=== PATIENT | male | born 1955 | race Caucasian/White ===

== ENCOUNTER 2018-07-31 22:06 | Inpatient (IN) | payer BC ==
[2018-07-31] MEDS ORDERED: VANCOMYCIN HCL INJ 1000 MG VIAL IV ONE (23:25)
[2018-07-31] MEDS ORDERED: AZTREONAM INJ 1 GM VIAL IV ONE (23:33)
--- NOTE | 2018-07-31 23:38 | ER Document Report ---
ED General - General Chief Complaint: Abscess Stated Complaint: POSSIBLE INSECT BITE Time Seen by Provider: 07/31/18 23:17 Mode of Arrival: Ambulatory Information source: Patient Notes: 63-year-old male with no reported past medical history presents with complaint of right elbow pain and left upper arm pain. She states on July 10, 2018 he got into his truck and noticed a brown spider crawl across his lap. He did not feel any pain or stinging at that time. He states 7 days later he started to develop redness and pain of the right elbow and 2 days after that developed pain, swelling and erythema of the left upper extremity. Patient denies any travel outside of [place]. He denies any fever, chills, nausea, vomiting history of MRSA. He states his is currently in the hospital which is the reason he delayed seeking care. TRAVEL OUTSIDE OF THE [place] IN LAST 30 DAYS: No - HPI Onset: Other Onset/Duration: Gradual, Persistent, Worse Quality of pain: Achy, Burning Severity: Mild Associated symptoms: denies: Chest pain, Diarrhea, Fever, Nausea, Vomiting, Shortness of breath Exacerbated by: Movement Relieved by: Denies Similar symptoms previously: No Recently seen / treated by doctor: No - Related Data Allergies/Adverse Reactions: Penicillins Allergy (Verified 07/31/18 22:11) Past Medical History - General Information source: Patient - Social History Smoking Status: Never Smoker Chew tobacco use (# tins/day): No Frequency of alcohol use: None Drug Abuse: None Lives with: Spouse/Significant other Family History: Reviewed & Not Pertinent Patient has suicidal ideation: No Patient has homicidal ideation: No - Medical History Medical History: Negative Renal/ Medical History: Denies: Hx Peritoneal Dialysis Review of Systems - Review of Systems Notes: REVIEW OF SYSTEMS: CONSTITUTIONAL : Denies fever, chills, or sweats. Denies recent illness. Denies weight loss, recent hospitalizations. EENT: Denies visual changes, eye pain. Denies sore throat, oral lesions, difficulty swallowing. CARDIOVASCULAR: Denies chest pain. Denies palpitations. Denies lower extremity edema. RESPIRATORY: Denies cough. Denies shortness of breath, wheezing. GASTROINTESTINAL: Denies abdominal pain or distention. Denies nausea, vomiting , or diarrhea. Denies blood in vomitus, stools, or per rectum. Denies black, tarry stools. Denies constipation. GENITOURINARY: Denies difficulty urinating, painful urination, frequency, blood in urine, testicular pain or penile discharge. MUSCULOSKELETAL: Denies back or neck pain or stiffness. Denies joint pain or swelling. SKIN:+ Erythema, ulceration HEMATOLOGIC : Denies easy bruising or bleeding. LYMPHATIC: Denies swollen glands. NEUROLOGICAL: Denies confusion or altered mental status. Denies loss of consciousness. Denies dizziness or lightheadedness. Denies headache. Denies weakness or paralysis. Denies problems difficulty with ambulation, slurred speech. Denies sensory loss, numbness, or tingling. Denies seizures. PSYCHIATRIC: Denies anxiety or stress. Denies depression, suicidal ideation, or Physical Exam - Vital signs Vitals: Temp Pulse Resp BP Pulse Ox 100.7 F H 91 19 167/69 H 98 07/31/18 22:16 07/31/18 22:16 07/31/18 22:16 07/31/18 22:16 07/31/18 22:16 Interpretation: Hypertensive, Febrile - Notes Notes: PHYSICAL EXAMINATION: GENERAL: Well-appearing, well-nourished and in no acute distress. HEAD: Atraumatic, normocephalic. EYES: Pupils equal round and reactive to light, extraocular movements intact, sclera anicteric, conjunctiva are normal. ENT: Nares patent, oropharynx clear without exudates. Moist mucous membranes. NECK: Normal range of motion, supple without lymphadenopathy LUNGS: Breath sounds clear to auscultation bilaterally and equal. No wheezes rales or rhonchi. HEART: Regular rate and rhythm without murmurs ABDOMEN: Soft, nontender, nondistended abdomen. No guarding, no rebound. No masses appreciated. Musculoskeletal: Right elbow-erythematous, warm, small pustular lesion noted. Left upper extremity-erythematous bicep with a 3 x 3 cm necrotic area. NEUROLOGICAL: Cranial nerves grossly intact. Normal speech, normal gait. Normal sensory, motor exams PSYCH: Normal mood, normal affect. SKIN: Warm, Dry, normal turgor, no rashes or lesions noted. Course - Re-evaluation Re-evalutation: Laboratory 07/31/18 07/31/18 08/01/18 23:35 23:35 01:17 WBC 10.2 RBC 4.78 Hgb 14.2 Hct 40.9 MCV 86 MCH 29.8 MCHC 34.8 RDW 13.2 Plt Count 321 Seg Neutrophils % 73.0 Lymphocytes % 13.5 Monocytes % 11.5 Eosinophils % 1.3 Basophils % 0.7 Absolute Neutrophils 7.4 Absolute Lymphocytes 1.4 Absolute Monocytes 1.2 Absolute Eosinophils 0.1 Absolute Basophils 0.1 PT 13.5 INR 0.98 APTT 35.7 Sodium 138.0 Potassium 3.9 Chloride 98 Carbon Dioxide 29 Anion Gap 11 BUN 13 Creatinine 0.70 Est GFR ( Amer) > 60 Est GFR (Non-Af Amer) > 60 Glucose 114 H Calcium 9.0 Total Bilirubin 0.7 Direct Bilirubin 0.1 Neonat Total Bilirubin Not Reportable Neonat Direct Bilirubin Not Reportable Neonat Indirect Bili Not Reportable AST 18 ALT 21 Alkaline Phosphatase 83 Total Protein 7.3 Albumin [address] 08/01/18 00:00 IMPRESSION: 1. 2.5 cm fluid collection at the level of the right elbow joint which may represent developing abscess or phlegmon. 2. Subcutaneous thickening with 2 cm nodule overlying the left biceps musculature, without a definite fluid collection. 63-year-old male with no reported past medical history presents with complaint of right elbow pain and left upper arm pain. She states on July 10, 2018 he got into his truck and noticed a brown spider crawl across his lap. He did not feel any pain or stinging at that time. He states 7 days later he started to develop redness and pain of the right elbow and 2 days after that developed pain, swelling and erythema of the left upper extremity. Patient denies any travel outside of [place]. He denies any fever, chills, nausea, vomiting history of MRSA. Vital signs reviewed upon arrival, patient is febrile , hypertensive. He does not appear toxic or dehydrated. He is in no acute distress. Exam is significant for a large area of erythema of the left bicep with a necrotic center as well as an erythematous right elbow with small pustular lesions. Patient was started on vancomycin and Unasyn per surgery recommendation. Surgery has evaluated the patient and determined that he will need surgical debridement. Dr. Ocampo has agreed to admit to his service. Medicine consult ordered and pending. 08/01/18 00:46 Dr. Salomon consult for possible need for debridement. 08/01/18 02:12 08/01/18 02:12 - Vital Signs Vital signs: Temp Pulse Resp BP Pulse Ox 100.7 F H 91 19 167/69 H 98 07/31/18 22:16 07/31/18 22:16 07/31/18 22:16 07/31/18 22:16 07/31/18 22:16 - Laboratory Result Diagrams: 07/31/18 23:35 07/31/18 23:35 Laboratory results interpreted by me: 07/31/18 23:35 Glucose 114 H - Diagnostic Test Radiology reviewed: Image reviewed, Reports reviewed Discharge - Discharge Clinical Impression: Cellulitis of left upper extremity Cellulitis Qualifiers: Site of cellulitis: extremity Site of cellulitis of extremity: upper extremity Laterality: right Qualified Code(s): L03.113 - Cellulitis of right upper limb Hypertension Qualifiers: Hypertension type: unspecified Qualified Code(s): I10 - Essential (primary) hypertension Fever Qualifiers: Fever type: unspecified Qualified Code(s): R50.9 - Fever, unspecified Condition: Good Disposition: ADMITTED INPATIENT Admitting Provider: Surgicalist Unit Admitted: Surgical Floor
[2018-07-31 23:48] LABS: ABSOLUTE BASOPHILS # (AUTO) 0.1 10^3/uL (0.0-0.2); ABSOLUTE EOSINOPHILS # (AUTO) 0.1 10^3/uL (0.0-0.6); ABSOLUTE LYMPHOCYTES (AUTO) 1.4 10^3/uL (0.5-4.7); ABSOLUTE MONOCYTES (AUTO) 1.2 10^3/uL (0.1-1.4); ABSOLUTE NEUT (AUTO) 7.4 10^3/uL (1.7-8.2); BASOPHILS % (AUTO) 0.7 % (0-2); EOSINOPHILS % (AUTO) 1.3 % (0-6); HEMATOCRIT 40.9 % (37.9-51.0); HEMOGLOBIN 14.2 g/dL (13.5-17.0); LYMPHOCYTES % (AUTO) 13.5 % (13-45); MEAN CORPUSCULAR HEMOGLOBIN 29.8 pg (27.0-33.4); MEAN CORPUSCULAR HGB CONC 34.8 g/dL (32.0-36.0); MEAN CORPUSCULAR VOLUME 86 fl (80-97); MONOCYTES % (AUTO) 11.5 % (3-13); PLATELET COUNT 321 10^3/uL (150-450); RED BLOOD COUNT 4.78 10^6/uL (4.35-5.55); RED CELL DISTRIBUTION WIDTH 13.2 % (11.5-14.0); TOTAL CELLS COUNTED % (AUTO) 100 %; WHITE BLOOD COUNT 10.2 10^3/uL (4.0-10.5)
[2018-08-01 00:02] LABS: ALANINE AMINOTRANSFERASE 21 U/L (21-72); ALKALINE PHOSPHATASE 83 U/L (38-126); ANION GAP 11 (5-19); ASPARTATE AMINO TRANSFERASE 18 U/L (17-59); BILIRUBIN,DIRECT 0.1 mg/dL (0.0-0.4); BILIRUBIN,TOTAL 0.7 mg/dL (0.2-1.3); BLOOD UREA NITROGEN 13 mg/dL (7-20); CARBON DIOXIDE 29 mmol/L (22-30); CHLORIDE 98 mmol/L (98-107); GLUCOSE 114 mg/dL (75-110); POTASSIUM 3.9 mmol/L (3.6-5.0); TOTAL PROTEIN 7.3 g/dL (6.3-8.2)
[2018-08-01] MEDS ORDERED: CLINDAMYCIN 900 MG/D5W RTU 900 MG/50 ML RTUPB IV ONE (01:10)
--- NOTE | 2018-08-01 01:26 | RADIOLOGY REPORT (SQ) ---
CT LEFT UPPER EXTREMITY WITH IV CONTRAST CT RIGHT UPPER EXTREMITY WITH IV CONTRAST HISTORY: Spider bite. COMPARISON: None. TECHNIQUE: CT scan of the bilateral upper extremities. This exam was performed according to our departmental dose-optimization program, which includes automated exposure control, adjustment of the mA and/or kV according to patient size and/or use of iterative reconstruction technique. FINDINGS: LEFT: Focal skin thickening with 2.0 x 1.6 cm soft tissue nodule at the level of the mid humeral shaft. No focal fluid collection is identified. Surrounding subcutaneous inflammatory stranding is seen. No evidence of osteomyelitis. No acute fracture or dislocation. Joint spaces are grossly preserved. RIGHT: Additional focal soft tissue thickening at the level of the elbow joint with an approximately 2.5 x 2.2 cm fluid collection in the subcutaneous tissues. Mild subcutaneous stranding of the upper extremity. No evidence of osteomyelitis. No acute fracture or dislocation. Joint spaces are grossly preserved. IMPRESSION: 1. 2.5 cm fluid collection at the level of the right elbow joint which may represent developing abscess or phlegmon. 2. Subcutaneous thickening with 2 cm nodule overlying the left biceps musculature, without a definite fluid collection.
[2018-08-01 01:35] LABS: INTERNATIONAL RATION (INR) 0.98; PROTHROMBIN TIME 13.5 SEC (11.4-15.4)
[2018-08-01 01:36] LABS: PARTIAL THROMBOPLASTIN TIME 35.7 SEC (23.5-35.8)
[2018-08-01] MEDS ORDERED: DEXTROSE 50%-WATER 25 GM/50 ML DISP.SYRIN IV PRN ×2 (03:01)
[2018-08-01] MEDS ORDERED: GLUCAGON,HUMAN RECOMB 1 MG INJ SUBCUT PRN (03:01)
[2018-08-01] MEDS ORDERED: DEXTROSE 40% GEL 15 GM TUBE PO PRN ×2 (03:01)
[2018-08-01 04:09] LABS: ABSOLUTE EOSINOPHILS # (AUTO) 0.1 10^3/uL (0.0-0.6); ABSOLUTE LYMPHOCYTES (AUTO) 0.9 10^3/uL (0.5-4.7); ABSOLUTE MONOCYTES (AUTO) 1.3 10^3/uL (0.1-1.4); ABSOLUTE NEUT (AUTO) 8.8 10^3/uL (1.7-8.2); BASOPHILS % (AUTO) 0.4 % (0-2); EOSINOPHILS % (AUTO) 0.6 % (0-6); HEMATOCRIT 40.4 % (37.9-51.0); HEMOGLOBIN 13.9 g/dL (13.5-17.0); LYMPHOCYTES % (AUTO) 8.2 % (13-45); MEAN CORPUSCULAR HEMOGLOBIN 29.3 pg (27.0-33.4); MEAN CORPUSCULAR HGB CONC 34.4 g/dL (32.0-36.0); MEAN CORPUSCULAR VOLUME 85 fl (80-97); MONOCYTES % (AUTO) 11.9 % (3-13); PLATELET COUNT 344 10^3/uL (150-450); RED BLOOD COUNT 4.73 10^6/uL (4.35-5.55); RED CELL DISTRIBUTION WIDTH 13.1 % (11.5-14.0); SEGMENTED NEUTROPHILS % (AUTO) 78.9 % (42-78); TOTAL CELLS COUNTED % (AUTO) 100 %; WHITE BLOOD COUNT 11.1 10^3/uL (4.0-10.5)
[2018-08-01] MEDS: NORMAL SALINE 1000 ML 1,000 ML IV SCH ×2 (05:29→17:15)
[2018-08-01] MEDS ORDERED: HYDRALAZINE HCL INJ/PF 20 MG/1 ML SDV IV PRN (05:48)
[2018-08-01] MEDS: HEPARIN SOD (PORCINE) 5,000 UNIT/ML 1 ML SYRINGE SUBCUT SCH ×2 (06:12→14:36)
[2018-08-01] MEDS: CLINDAMYCIN 600 MG/D5W RTU 600 MG/50 ML RTUPB IV SCH ×2 (12:01→17:23)
[2018-08-01] MEDS ORDERED: FENTANYL CITRATE INJ/PF 100 MCG/2 ML AMPUL ONE (14:13)
[2018-08-01] MEDS ORDERED: MIDAZOLAM 2 MG/2 ML INJ ONE (14:13)
[2018-08-01] MEDS ORDERED: PROPOFOL INJ 200 MG/20 ML VIAL IV ONE (14:14)
[2018-08-01] MEDS ORDERED: LIDOCAINE 1% INJ-PF (10 MG/ML) 30 ML SDV ONE (14:35)
[2018-08-01] MEDS ORDERED: BUPIVACAINE HCL 0.5 % INJ/PF 30 ML SDV ONE (14:35)
[2018-08-01] MEDS ORDERED: KETAMINE HCL INJ 500 MG/10 ML VIAL ONE (14:54)
[2018-08-01] MEDS ORDERED: DIPHENHYDRAMINE HCL 50 MG/ML VIAL IV PRN (15:16)
[2018-08-01] MEDS ORDERED: FENTANYL CITRATE INJ/PF 100 MCG/2 ML AMPUL IV PRN ×3 (15:16)
[2018-08-01] MEDS ORDERED: ONDANSETRON HCL INJ/PF 4 MG/2 ML SDV IV PRN (15:16)
[2018-08-01] MEDS ORDERED: OXYCODONE-ACETAMINOPHEN 5-325 MG TABLET PO PRN ×2 (15:16)
[2018-08-01] MEDS ORDERED: PROMETHAZINE HCL INJ 25 MG/1 ML VIAL IV PRN ×2 (15:16)
[2018-08-01] MEDS ORDERED: MORPHINE SULFATE 10 MG/ML INJ IV PRN (15:16)
[2018-08-01] MEDS ORDERED: MEPERIDINE HCL/PF INJ 25 MG/1 ML DISP.SYRIN IV PRN (15:16)
--- NOTE | 2018-08-01 16:13 | Operative Report ---
Nonrecallable Operative Report DATE OF SURGERY: 08/01/18 PREOPERATIVE DIAGNOSIS: Right upper extremity (elbow) abscess, left upper extremity abscess (biceps area) POSTOPERATIVE DIAGNOSIS: Same as above OPERATION: Incision and drainage of multiple upper extremity abscesses with sharp, excisional debridement of skin and fatty soft tissue. SURGEON: PREMA VORA ANESTHESIA: GA TISSUE REMOVED OR ALTERED: Wound culture COMPLICATIONS: None apparent ESTIMATED BLOOD LOSS: Minimal PROCEDURE: Drains/implants: 4 x 4 soaked in Betadine. Procedure in detail: After informed consent was obtained, the patient was brought to the operating room and laid in the supine position. The area of the right upper extremity and left upper extremity were prepped and draped in normal sterile fashion. There was a large amount of necrotic tissue at the right posterior elbow. This necrotic tissue was excised sharply. The total area was approximately 3 cm x 3 cm. It consisted of skin and fatty soft tissue. A cavity full of purulent material was encountered. This was sent for wound culture. It was irrigated and cleaned. Hemostasis was achieved using Bovie electrocautery. A dressing was placed, and attention was turned to the left upper extremity. The left upper extremity also had a large area of necrotic tissue overlying the anterior biceps. This necrotic tissue was excised sharply. There was a moderate amount of purulent material within the abscess cavity. This was irrigated and cleaned. The total debrided area was approximately 3 cm x 3 cm. The debrided area consisted of skin and fatty soft tissue. Once the debridement was completed, a dressing was placed with Betadine soaked 4 x 4. At this time the procedure was concluded. All sponge, instrument, and needle counts were correct x2. Condition: Stable.
[2018-08-01] MEDS: KETOROLAC TROMETHAMINE INJ/PF 30 MG/1 ML SDV IV PRN (17:23)
[2018-08-02] MEDS: CLINDAMYCIN 600 MG/D5W RTU 600 MG/50 ML RTUPB IV SCH ×3 (02:55→17:32)
[2018-08-02 04:10] LABS: ABSOLUTE BASOPHILS # (AUTO) 0.1 10^3/uL (0.0-0.2); ABSOLUTE EOSINOPHILS # (AUTO) 0.1 10^3/uL (0.0-0.6); ABSOLUTE LYMPHOCYTES (AUTO) 1.3 10^3/uL (0.5-4.7); ABSOLUTE NEUT (AUTO) 5.8 10^3/uL (1.7-8.2); BASOPHILS % (AUTO) 1.2 % (0-2); EOSINOPHILS % (AUTO) 1.7 % (0-6); HEMATOCRIT 37.2 % (37.9-51.0); HEMOGLOBIN 12.8 g/dL (13.5-17.0); LYMPHOCYTES % (AUTO) 15.7 % (13-45); MEAN CORPUSCULAR HEMOGLOBIN 29.2 pg (27.0-33.4); MEAN CORPUSCULAR HGB CONC 34.3 g/dL (32.0-36.0); MEAN CORPUSCULAR VOLUME 85 fl (80-97); MONOCYTES % (AUTO) 12.3 % (3-13); PLATELET COUNT 303 10^3/uL (150-450); RED BLOOD COUNT 4.38 10^6/uL (4.35-5.55); RED CELL DISTRIBUTION WIDTH 12.9 % (11.5-14.0); SEGMENTED NEUTROPHILS % (AUTO) 69.1 % (42-78); TOTAL CELLS COUNTED % (AUTO) 100 %; WHITE BLOOD COUNT 8.4 10^3/uL (4.0-10.5)
[2018-08-02] MEDS: TRAMADOL HCL 50 MG TABLET PO PRN ×2 (04:23→09:41)
--- NOTE | 2018-08-02 07:51 | PDOC PROGRESS REPORT ---
Subjective Progress Note for:: 08/02/18 Subjective:: Pains along both arms I&D sites Reason For Visit: ABSCESS RIGHT ELBOW, CELLULITIS/ABSCESS LEFT UPPER Physical Exam Vital Signs: Temp Pulse Resp BP Pulse Ox 98.7 F 68 15 127/57 H 96 08/01/18 22:00 08/01/18 22:00 08/01/18 22:00 08/01/18 22:00 08/01/18 22:00 Intake & Output 08/01/18 08/02/18 08/03/18 06:59 06:59 06:59 Intake Total 50 2236 Output Total 1140 Balance 50 1096 Weight 103.8 kg 99.2 kg Exam: Packings removed. Wounds look dry and relatively clean. Results Laboratory Results: 08/02/18 03:45 08/02/18 03:45 WBC 8.4 RBC 4.38 Hgb 12.8 L Hct 37.2 L MCV 85 MCH 29.2 MCHC 34.3 RDW 12.9 Plt Count 303 Seg Neutrophils % 69.1 Lymphocytes % 15.7 Monocytes % 12.3 Eosinophils % 1.7 Basophils % 1.2 Absolute Neutrophils 5.8 Absolute Lymphocytes 1.3 Absolute Monocytes 1.0 Absolute Eosinophils 0.1 Absolute Basophils 0.1 Impressions: Upper Extremity CT 08/01/18 00:00 IMPRESSION: 1. 2.5 cm fluid collection at the level of the right elbow joint which may represent developing abscess or phlegmon. 2. Subcutaneous thickening with 2 cm nodule overlying the left biceps musculature, without a definite fluid collection. Assessment & Plan - Diagnosis (3) Fever Qualifiers: Fever type: unspecified Qualified Code(s): R50.9 - Fever, unspecified Is this a current diagnosis for this admission?: Yes (4) Hypertension Qualifiers: Hypertension type: unspecified Qualified Code(s): I10 - Essential (primary ) hypertension Is this a current diagnosis for this admission?: Yes - Time Time Spent with patient: 15-24 minutes - Inpatient Certification Medical Necessity: Need for Pain Control, Need for IV Antibiotics - Plan Summary Plan Summary: Awaiting C/S studies suspicious for MRSA Start wet to dry dressings BID Continue IV antibiotics
[2018-08-03] MEDS: CLINDAMYCIN 600 MG/D5W RTU 600 MG/50 ML RTUPB IV SCH ×3 (02:50→17:21)
[2018-08-03] MEDS: KETOROLAC TROMETHAMINE INJ/PF 30 MG/1 ML SDV IV PRN ×2 (05:53→17:22)
--- NOTE | 2018-08-03 23:36 | PDOC PROGRESS REPORT ---
Subjective Progress Note for:: 08/03/18 Subjective:: Mild pains along wound sites. + MRSa in both right elbow and left upper arm wounds Reason For Visit: ABSCESS RIGHT ELBOW, CELLULITIS/ABSCESS LEFT UPPER Physical Exam Vital Signs: Temp Pulse Resp BP Pulse Ox 98.1 F 66 16 135/77 H 100 08/03/18 19:28 08/03/18 19:28 08/03/18 12:09 08/03/18 19:28 08/03/18 19:28 Intake & Output 08/02/18 08/03/18 08/04/18 06:59 06:59 06:59 Intake Total 2236 586 440 Output Total 1140 1325 975 Balance 1096 -739 -535 Weight 99.2 kg 100.2 kg Exam: Dressings changed with wet to dry saline gauze wrapped right elbow with Kerlix and left upper arm with brina bandage. Wounds are relatively ckean. Right elbow has some dark discolorations. Told patient can shower and wash wounds with soap and water. Results Laboratory Results: 08/02/18 03:45 Impressions: Upper Extremity CT 08/01/18 00:00 IMPRESSION: 1. 2.5 cm fluid collection at the level of the right elbow joint which may represent developing abscess or phlegmon. 2. Subcutaneous thickening with 2 cm nodule overlying the left biceps musculature, without a definite fluid collection. Assessment & Plan - Diagnosis (3) Fever Qualifiers: Fever type: unspecified Qualified Code(s): R50.9 - Fever, unspecified Is this a current diagnosis for this admission?: Yes (4) Hypertension Qualifiers: Hypertension type: unspecified Qualified Code(s): I10 - Essential (primary ) hypertension Is this a current diagnosis for this admission?: Yes (5) MRSA (methicillin resistant staph aureus) culture positive Is this a current diagnosis for this admission?: Yes - Time Time Spent with patient: 15-24 minutes - Inpatient Certification Medical Necessity: Need for Pain Control, Need for IV Antibiotics, Risk of Complication if Not Cared For in Hospital - Plan Summary Plan Summary: MRSA sensitive to Clindamycin. Ordered to take clindamycin 600 mgs QID when discharge which is scheduled for tomorrow F/U wound care center [facility] home visits for wound check and wound dressings daily for 2 weeks
[2018-08-04] MEDS: CLINDAMYCIN 600 MG/D5W RTU 600 MG/50 ML RTUPB IV SCH (01:33)
[2018-08-04] MEDS: KETOROLAC TROMETHAMINE INJ/PF 30 MG/1 ML SDV IV PRN (03:59)
[2018-08-04] MEDS: TRAMADOL HCL 50 MG TABLET PO PRN (04:01)
[2018-08-04 09:11] VITALS: BP 157/79
--- NOTE | 2018-08-26 21:12 | PDOC H&P ---
History of Present Illness Admission Date/PCP: 08/01/18 01:57 Patient complains of: Pains right elbow and left upper arm History of Present Illness: 63 yo male who noted a brown sopider crawl over his lap when he was sitting in his truck Jul 10/2018. Did not feel any pains or stinging at that time until 7 days later when he noted painful reddish swelling on his right elbow followed 2 days later on his right upper arm. Went to ED night of 07/31 and admitted . for abscess right elbow and left upper arm. Social History Lives with: Spouse/Significant other Smoking Status: Never Smoker Frequency of Alcohol Use: None Hx Recreational Drug Use: No Hx Prescription Drug Abuse: No - Advance Directive Resuscitation Status: Full Code Family History Family History: Reviewed & Not Pertinent Parental Family History Reviewed: Yes Children Family History Reviewed: No Sibling(s) Family History Reviewed.: No Medication/Allergy Home Medications: No Home Medications 08/01/18 Allergies/Adverse Reactions: Penicillins Allergy (Verified 07/31/18 22:11) Review of Systems Constitutional: PRESENT: fever(s) Eyes: PRESENT: other - no visual/hearing changes Cardiovascular: PRESENT: other - no chest pains/cough Integumentary: PRESENT: erythema - and painful swelling right elbow and left upper arm Physical Exam Vital Signs: Temp Pulse Resp BP Pulse Ox 98.0 F 53 L 20 157/79 H 100 08/04/18 09:11 08/04/18 09:11 08/04/18 09:11 08/04/18 09:11 08/04/18 09:11 General appearance: PRESENT: mild distress Head exam: PRESENT: atraumatic Eye exam: PRESENT: conjunctiva pink Mouth exam: PRESENT: moist Neck exam: PRESENT: full ROM Respiratory exam: PRESENT: clear to auscultation karo Cardiovascular exam: PRESENT: RRR Pulses: PRESENT: normal radial pulses Vascular exam: PRESENT: normal capillary refill GI/Abdominal exam: PRESENT: soft Rectal exam: PRESENT: deferred Extremities exam: PRESENT: tenderness - erythematous swelling right elbow and left upper arm Musculoskeletal exam: PRESENT: ambulatory Neurological exam: PRESENT: alert, oriented to person, oriented to place, oriented to time, oriented to situation Psychiatric exam: PRESENT: appropriate affect Skin exam: PRESENT: normal color, warm Results Laboratory Results: 08/02/18 03:45 Impressions: Upper Extremity CT 08/01/18 00:00 IMPRESSION: 1. 2.5 cm fluid collection at the level of the right elbow joint which may represent developing abscess or phlegmon. 2. Subcutaneous thickening with 2 cm nodule overlying the left biceps musculature, without a definite fluid collection. Assessment & Plan - Diagnosis (3) Fever Qualifiers: Fever type: unspecified Qualified Code(s): R50.9 - Fever, unspecified Is this a current diagnosis for this admission?: Yes (4) Hypertension Qualifiers: Hypertension type: unspecified Qualified Code(s): I10 - Essential (primary ) hypertension Is this a current diagnosis for this admission?: Yes (5) MRSA (methicillin resistant staph aureus) culture positive Is this a current diagnosis for this admission?: Yes - Time Time Spent: 30 to 50 Minutes - Inpatient Certification Medical Necessity: Need for Pain Control, Need for IV Antibiotics, Need for Surgery - Plan Summary Plan Summary: IV antibiotics For I&D of right elbow and left upper arm abscesses
--- NOTE | 2018-08-27 13:11 | DISCHARGE SUMMARY E ---
Discharge Summary NAME: SHAN ZAVALA : 1955 AGE: 63Y ADMITTED: 08/01/2018 DISCHARGED: 08/04/2018 FINAL DIAGNOSIS: Abscess of the right elbow and the left upper arm. PROCEDURE DONE: Incision and drainage of abscesses of the right elbow and left upper arm 08/01/18, surgeon Dr. Blake. HOSPITAL COURSE: This is a 63-year-old male admitted for abscess of the right elbow and the left upper extremity. The patient underwent incision and drainage of abscesses of the right elbow and the left upper arm on 08/01/18, done by Dr. Blake. The patient was continued on IV antibiotics and subsequently discharged improved on 08/04/18. Arrangements were made for home healthcare for wet-to-dry dressings on both right elbow and the left upper arm, and the patient is to be followed up in the [facility]ound Care Center or Surgical Clinic. DICTATING PHYSICIAN: SUSY ARGUELLO M.D. [id number] PHY#: [id number] ID: [id number] JOB#: [id number] ACCT: [id number] cc:SUSY ARGUELLO M.D. >
== END 2018-08-04 09:50 | disposition home health service (06) | DRG 572 ==
LOC: ER 22:06 → EH 08-01 01:57 → 4N 08-01 04:34
PROVIDERS: ADMIT Surgery; ATTEND Surgery
PROC: 0KB80ZZ Excision of Left Upper Arm Muscle, Open Approach (ICD-10-PCS; 2018-08-01)
PROC: 0JBG0ZZ Excision of Right Lower Arm Subcutaneous Tissue and Fascia, Open Approach (ICD-10-PCS; principal; 2018-08-01 13:45)
DX: L03.113 Cellulitis of right upper limb (principal); L02.413 Cutaneous abscess of right upper limb; L02.414 Cutaneous abscess of left upper limb; I10 Essential (primary) hypertension; B95.62 Methicillin resistant Staphylococcus aureus infection as the cause of diseases classified elsewhere
CPT/HCPCS: 00400; 36415; 80053; 85025; 85610; 85730; 87040; 87070; 87075; 87077; 87186; 87205; 96365; 96366; 99285; J1885; J2250; J2704; J3010; J3370; J3490; J7030

== ENCOUNTER → 2020-10-27 | Outpatient (CLI) | payer BC, OTHER ==
--- NOTE | 2020-10-27 14:14 | ER [facility] ASSESSMENT REPORT ---
Intake - In the Last 14 days Have you traveled outside [place]?: No Have you been in close contact with someone CONFIRMED: Yes Worked in Healthcare?: No - Symptoms Subjective Fever([place] feverish): No Chills: No Muscule Aches: No Runny Nose: No Sore Throat: No Cough (New or worsening chronic cough): No Shortness of breath: No Nausea or Vomiting: No Headache: No Abdominal Pain: No Diarrhea(3 or more loose stools in last 24 hours): No - Do you have any of the following Chronic lung disease: Asthma or emphysema or COPD: No Cystic Fibrosis: No Diabetes: No High Blood Pressure: No Cardiovascular Disease: No Chronic Kidney Disease: No Chronic Liver Disease: No Chronic blood disorder like Sickle Cell Disease: No Weak immune system due to disease or medication: No Neurologic condition that limits movement: No Developmental delay - Moderate to Severe: No Recent (within past 2 weeks) or current : No Morbid Obesity (>100 pounds over ideal weight): No - Objective Temperature: 99.4 F Pulse Rate: 84 Respiratory Rate: 17 Blood Pressure: 169/77 O2 Sat by Pulse Oximetry: 96 Objective: Given above, testing performed: If Testing Performed: Test Specimen Type Sent to General - General Information source: Patient Notes: Patient presents to the [facility] for screening for the coronavirus. Patient reports exposure to a family member who tested positive. - Related Data Allergies/Adverse Reactions: Penicillins Allergy (Verified 07/31/18 22:11) Past Medical History - General Information source: Patient - Social History Family History: Reviewed & Not Pertinent - Medical History Medical History: Negative Renal/ Medical History: Denies: Hx Peritoneal Dialysis Past Surgical History: Reports: Hx Orthopedic Surgery Physical Exam - Notes Notes: The patient was evaluated during the global Covid 19 pandemic, and that diagnosis was suspected/considered upon their initial presentation. Their evaluation and testing was consistent with current guidelines for patients who present with complaints or symptoms that may be related to Covid 19. Full physical exam could not be performed due to covid 19 isolation protocols. Constitutional: Nontoxic appearance, no acute distress Eyes: Nonicteric, extraocular movements intact, sclera clear ENT: Posterior pharynx without exudate Cardiovascular: Heart rate and rhythm regular, breath sounds clear bilaterally, no JVD Respiratory: Nonlabored breathing, no use of accessory muscles, no tachypnea Gastrointestinal: Abdomen not distended Muculoskeletal: Moves all extremities well Skin: Normal color Neuro: Awake alert oriented, normal speech Psych: Normal mood and affect Diagnostic Results Laboratory Results: Patient presents with exposure worrisome for possible Covid 19. Patient does not have emergency worrying symptoms such as difficulty breathing, shortness of breath, chest pain, pressure, confusion or cyanosis. Patient appears suitable for discharge as vital signs are stable and patient is nontoxic in appearance. Good return precautions have been discussed with patient, patient verbalized understanding and is agreeable with discharge plan of care at this time. Patient Education/Counseling Counseling/Education: Patient was provided with discharge information including: As a person under investigation for Covid 19, the [facility], division of public health advises you to adhere to the following guidance until your test results are reported to you. If your test result is positive, you will receive additional information from your provider and your local health department at that time. Remain at home until you are cleared by the health provider or public health authorities. Keep a log of visitors to your home, notify any visitors to your home of your isolation status. If you plan to move to a new address or leave the county, notify the local health department in your County. Call your doctor or seek care if you have an urgent medical need. Before seeking medical care, call ahead to get instructions from the provider before arriving at the medical office clinic or hospital. Notify them that you are being tested for the virus that causes Covid 19 so that arrangements can be made, as necessary, to prevent transmission to others in the healthcare setting. Next, notify the local health department in your county. If a medical emergency arises and you need to call 911, inform the first responders that you are being tested for the virus that causes Covid 19. Next, notify the local health department in your county. [facility] Discharge - Discharge Clinical Impression: Encounter for screening for COVID-19 Condition: Stable Disposition: Home; Selfcare
[2020-10-27 14:19] VITALS: BP 169/77
== END ==
LOC: RDC 13:35
PROVIDERS: ATTEND Nurse Practitioner Family
DX: U07.1 COVID-19 (principal); Z88.0 Allergy status to penicillin
CPT/HCPCS: 99202; 99211; U0003; C9803; 87635